=== PATIENT | female | born 1990 | race Caucasian/White ===

== ENCOUNTER 2023-07-11 10:18 | Inpatient (IN) ==
--- NOTE | 2023-07-11 11:11 | DR.DIZZY ---
HPI Time seen Time Seen by Provider: 07/11/23 11:11 PCP Primary Care Physician: Donna Polk Complaint Chief Complaint Doctor Comments: 32-year-old female presents for evaluation. Patient has persistent nausea vomiting over the past 3 weeks, is worsening. She is feeling lightheaded and dizzy. Patient with possible syncopal episode prior to arrival, was laying down with her , she started shaking all over. She could hear him calling her but she could not move. Having some discomfort across the upper abdomen. No history of peptic ulcer disease in the past. Nothing has set off vomiting that she knows about. Has had decreased p.o. intake, not moving her bowels much. She is urinating but the urine is dark. Patient has a history of hepatitis C in the past. No abdominal surgeries. Did have BTL with coils placed. Chief Complaint:: Pt c/o vomitting, dizziness, "I think a seizure right before we got here", pt states she was convulsing, really numb, "I know I have a UTI and I'm super dehydrated". Pt vomitting multiple times this AM. Pt states she has been vomitting x3 weeks, feeling of going to pass out has been going on for about a week. Pt c/o hot and cold chills. Pt is not being treated for UTI, "I know how they look and how they feel". Pt states "I feel like my body is shutting down". Generalized abdominal pain, denies diarrhea or constipation Self Treatment fo Chief Complaint: prilosec daily but has not taken any meds this AM except 1/2 subutex COVID-19 Coronavirus risk:travel/contact w/high risk person: No Has patient experienced Coronavirus symptoms: No Source History Provided: Patient Mode of Arrival Mode of Arrival: Wheelchair Timing Onset of Chief Complaint: 06/20/23 Context Stroke Symptoms: None PMH PMH Past Medical History: Yes Past Medical History: Anxiety, Depression, GERD and Liver Disease Past Medical History Comment: kate Hep C Past Surgical History: Yes Surgical History: PAINTER ASSISTANT Surgery Family History History of Family Medical Conditions: No Social History Does patient currently use any type of tobacco product: Yes Have you used tobacco products in the last 12 months: Yes Type of Tobacco Use: Vape Does any household member use tobacco: Yes Alcohol Use: Occasionally Do you use any recreational Drugs:: Yes (METH , AND DILAUDID) Lives With: Spouse Lives Where: Home Travel Risk Coronavirus risk:travel/contact w/high risk person: No Has patient experienced Coronavirus symptoms: No Infectious screening Have you traveled outside the country in the last 6 months?: No Isolation: Standard ROS Review of Systems Constitutional: Weakness Eyes: No Symptoms Reported ENTM: No Symptoms Reported Respiratoy: No Symptoms Reported Cardiovascular: No Symptoms Reported Gastrointestinal/Abdominal: See HPI Genitourinary: No Symptoms Reported Neurological: Weakness and Dizziness Musculoskeletal: No Symptoms Reported Integumentary: No Symptoms Reported Hematologic/Lymphatic: No Symptoms Reported All Other Systems: Reviewed and Negative PE Vital Signs Vitals: Vital Signs Temperature 97.9 F Pulse Rate 104 Pulse Rate 107 Pulse Rate 104 Pulse Rate 111 Pulse Rate 113 Pulse Rate 112 Pulse Rate 107 Pulse Rate 102 Pulse Rate 103 Pulse Rate 104 Pulse Rate 97 Pulse Rate 100 Pulse Rate 101 Pulse Rate 106 Pulse Rate 129 Respiratory Rate 28 Respiratory Rate 28 Respiratory Rate 16 Respiratory Rate 14 Respiratory Rate 24 Respiratory Rate 24 Respiratory Rate 15 Respiratory Rate 15 Respiratory Rate 22 Respiratory Rate 19 Respiratory Rate 11 Respiratory Rate 20 Respiratory Rate 11 Respiratory Rate 11 Respiratory Rate 16 Blood Pressure 148/91 Blood Pressure 119/79 Blood Pressure 136/76 Blood Pressure 142/82 Blood Pressure 119/89 O2 Sat by Pulse Oximetry 100 O2 Sat by Pulse Oximetry 96 O2 Sat by Pulse Oximetry 99 O2 Sat by Pulse Oximetry 98 O2 Sat by Pulse Oximetry 96 O2 Sat by Pulse Oximetry 99 O2 Sat by Pulse Oximetry 98 O2 Sat by Pulse Oximetry 97 O2 Sat by Pulse Oximetry 98 O2 Sat by Pulse Oximetry 100 O2 Sat by Pulse Oximetry 95 O2 Sat by Pulse Oximetry 96 O2 Sat by Pulse Oximetry 94 O2 Sat by Pulse Oximetry 96 O2 Sat by Pulse Oximetry 96 General General Appearance: Alert and In No Apparent Distress Eyes Eye exam: PERRL and EOMI ENT ENT Exam: Normal Oropharynx, Mucous Membranes Moist and TM's Normal Bilaterally Neck Neck Exam: Normal Inspection Respiratory Respiratory Exam: Normal Lung Sounds Bilat; negative Accessory Muscle Use or Respiratory Distress Cardiovascular Cardiovascular Exam: Normal Rhythm, Tachycardia and Normal Heart Sounds Abdominal Exam Abdominal Exam: Normal Bowel Sounds and Soft; negative Tenderness, Guarding or Rebound Extremeties Extremities Exam: Normal Inspection and Full ROM Neurologic Neurological Exam: Alert, Oriented X3 and CN II-XII Intact; negative Motor Sensory Deficit Skin Skin Exam: Warm and Dry COURSE Treatment Treatment: 29-year-old female with persistent vomiting of the past 3 weeks. W/u initiated. Patient given IV fluids, IV Zofran/Protonix. 1418 -labs show normal white count, slightly low platelets at 93,000. Chemistries remarkable for hyponatremia 129 and marked hypokalemia at 2.3. Has mild liver inflammation with AST 119, ALT 101. Urinalysis has too numerous to count red blood cells/white blood cells per high-power field. CT of the abdomen pelvis was performed, no obvious acute abnormalities. Renal function normal, kidney is normal on CT scan. Patient given additional IV fluids. Was also given potassium chloride, 10 mg, IV rider. Given 1 g IV Rocephin at this time for her UTI. 1420 -discussed with Dr. Richey, accepts the admission for patient's acute hypokalemia/hyponatremia and UTI. Will continue IV fluids, IV Rocephin, IV Zofran/Protonix. ROR Labs Reviewed Laboratory Results Reviewed?: Yes 07/11/23 11:30 07/11/23 11:30 Laboratory: WBC 9.0 X10^3/uL (3.6-10.0) 07/11/23 11:30 RBC 3.90 X10^6/uL (3.5-5.4) 07/11/23 11:30 Hgb 13.2 g/dL (12.0-16.0) 07/11/23 11:30 Hct 37.3 % (36.0-47.0) 07/11/23 11:30 MCV 95.5 fL (80.0-100.0) 07/11/23 11:30 MCH 33.8 pg (27.0-34.0) 07/11/23 11:30 MCHC 35.4 g/dL (33.0-35.0) H 07/11/23 11:30 RDW 14.4 % (11.6-16.5) 07/11/23 11:30 Plt Count 93 X10^3/uL (150.0-450.0) L 07/11/23 11:30 MPV 9.2 fL (7.4-11.0) 07/11/23 11:30 Neut % (Auto) 80.8 % (42.0-75.0) H 07/11/23 11:30 Lymph % (Auto) 11.0 % (21.0-51.0) L 07/11/23 11:30 [place] % (Auto) 7.8 % (0.0-13.0) 07/11/23 11:30 Eos % (Auto) 0.2 % (0.9-2.9) L 07/11/23 11:30 Baso % (Auto) 0.2 % (0.2-1.0) 07/11/23 11:30 Neut # (Auto) 7.2 x10^3/uL (2.2-4.8) H 07/11/23 11:30 Lymph # (Auto) 1.0 X10^3/uL (1.3-2.9) L 07/11/23 11:30 [place] # (Auto) 0.7 x10^3/uL (0.3-0.8) 07/11/23 11:30 Eos # (Auto) 0.0 x10^3/uL (0.0-0.2) 07/11/23 11:30 Baso # (Auto) 0.0 X10^3/uL (0.0-0.1) 07/11/23 11:30 Absolute Nucleated RBC 0.0 /100WBC 07/11/23 11:30 Sodium 129 mmol/L (136-145) L 07/11/23 11:30 Corrected Sodium TNP 07/11/23 11:30 Potassium 2.3 mmol/L (3.5-5.1) L* 07/11/23 11:30 Chloride 82 mmol/L (98-107) L 07/11/23 11:30 Carbon Dioxide > 45.0 mmol/L (21-32) H* 07/11/23 11:30 BUN 9 mg/dL (7-18) 07/11/23 11:30 Creatinine 0.97 mg/dL (0.55-1.02) 07/11/23 11:30 Est GFR (MDRD) Af Amer > 60 (>60) 07/11/23 11:30 Est GFR (MDRD) Non-Af > 60 (>60) 07/11/23 11:30 Glucose 97 mg/dL (65-99) 07/11/23 11:30 Calcium 8.2 mg/dL (8.5-10.1) L 07/11/23 11:30 Corrected Calcium 8.8 mg/dL (8.5-10.1) 07/11/23 11:30 Magnesium 1.1 mg/dL (2.0-2.9) L 07/11/23 13:27 Total Bilirubin 1.80 mg/dL (0.2-1.0) H 07/11/23 11:30 AST 119 Units/L (15-37) H 07/11/23 11:30 ALT 101 Units/L (12-78) H 07/11/23 11:30 Alkaline Phosphatase 93 Units/L (46-116) 07/11/23 11:30 Creatine Kinase 50 Units/L (26-192) 07/11/23 11:30 Total Protein 7.8 g/dL (6.4-8.2) 07/11/23 11:30 Albumin 3.2 g/dL (3.4-5.0) L 07/11/23 11:30 Globulin 4.6 g/dL (2.5-4.5) H 07/11/23 11:30 Albumin/Globulin Ratio 0.7 Ratio (1.1-2.1) L 07/11/23 11:30 Lipase 30 Units/L (16-77) 07/11/23 11:30 HCG, Qual Negative <10 mIU/mL 07/11/23 11:30 Specimen Type Clean catch urine 07/11/23 13:30 Urine Color [place] (YELLOW) 07/11/23 13:30 Urine Appearance Cloudy (CLEAR) 07/11/23 13:30 Urine pH 6.0 (5.0 - 8.0) 07/11/23 13:30 Ur Specific [place] 1.015 (1.000-1.030) 07/11/23 13:30 Urine Protein 2+ (NEGATIVE) 07/11/23 13:30 Urine Glucose (UA) Negative (NEGATIVE) 07/11/23 13:30 Urine Ketones Negative (NEGATIVE) 07/11/23 13: Urine Blood 4+ (NEGATIVE) 07/11/23 13:30 Urine Nitrite Negative (NEGATIVE) 07/11/23 13:30 Urine Bilirubin 1+ (NEGATIVE) 07/11/23 13: Urine Urobilinogen 3+ (NORMAL) 07/11/23 13:30 Ur Leukocyte Esterase 3+ (NEGATIVE) 07/11/23 13:30 Urine RBC Tntc /HPF (0-3) A 07/11/23 13:30 Urine WBC Tntc /HPF (0-5) A 07/11/23 13:30 Ur Squamous Epith Cells Few /HPF (NEGATIVE) 07/11/23 13:30 Amorphous Sediment 2+ /HPF (NEGATIVE) 07/11/23 13:30 Urine Bacteria 3+ /HPF (NEGATIVE) 07/11/23 13:30 Ur Culture Indicated? Yes/culture set up 07/11/23 13:30 XRAY XRAY Interpreted by: Both X-ray Results: EXAM: ABDCMEN/PELVIS WITH CON HISTORY: VOMITING, UPPER ABD PAIN; TUBAL, HTN COMPARISON: None available. TECHNIQUE: Multiple axial images of the abdomen and pelvis were obtained with IV contrast. Oral contrast was not administered. Dose reduction techniques including Automated Exposure Control (AEC) and adjustment of mA and kV were utilized. FINDINGS: Lung bases are unremarkable. No free air. Bones show no lytic or destructive process. The spleen, adrenal glands, pancreas unremarkable. Kidneys appear normal. No hydronephrosis. No ureteral calculi evident. Fatty liver. Gallbladder unremarkable. Abdominal aorta not aneurysmal, no adenopathy. Nonobstructive bowel. No bowel inflammatory features. Normal appendix. Rogelio dder wall thickening consider despite decompression ascending and transverse colon. No pelvic free fluid. Bladder unremarkable. Tubal ligation clips in the right lower pelvis. No adnexal mass appreciated. IMPRESSION: 1. Fatty liver. 2. Nonobstructive bowel, no bowel inflammatory features, decompressed ascending and transverse colon presumably exaggerate wall appearance but mild colitis difficult to exclude by imaging. Normal appendix. 3. Additional as above THIS IS AN ELECTRONICALLY VERIFIED FINAL REPORT 07/11/2023 2:04 PM - Electronically signed by Darrell Avila MD Opioid Opioid Risk Tool Age ([place] box if 16-45): Yes History of Preadolescent Sexual Abuse: No Total: 1 Total Score Risk Category: Low Risk Copyright: Zachery PADGETT predicting aberrant behaviors Discharge Plan Diagnosis Discharge Problem: Acute UTI, Acute hypokalemia, Acute hyponatremia Discharge Plan Patient Disposition: ADMITTED INPATIENT Condition: Stable Orders to Discharge Patient Discharge Orders: Transfer (Routine); Ordered 07/11/23 Ordered By: Jay Quinones
[2023-07-11 11:38] LABS: BASOPHILS % (AUTO) 0.2 % (0.2-1.0); EOSINOPHILS % (AUTO) 0.2 % (0.9-2.9); HEMATOCRIT 37.3 % (36.0-47.0); HEMOGLOBIN 13.2 g/dL (12.0-16.0); MEAN CORPUSCULAR HEMOGLOBIN 33.8 pg (27.0-34.0); MEAN CORPUSCULAR HGB CONC 35.4 g/dL (33.0-35.0); MEAN CORPUSCULAR VOLUME 95.5 fL (80.0-100.0); MEAN PLATELET VOLUME 9.2 fL (7.4-11.0); MONOCYTES # (AUTO) 0.7 x10^3/uL (0.3-0.8); MONOCYTES % (AUTO) 7.8 % (0.0-13.0); NEUTROPHILS # (AUTO) 7.2 x10^3/uL (2.2-4.8); NEUTROPHILS % (AUTO) 80.8 % (42.0-75.0); PLATELET COUNT 93 X10^3/uL (150.0-450.0); RED CELL DISTRIBUTION WIDTH 14.4 % (11.6-16.5)
[2023-07-11] MEDS: NS 1,000 ML IV 1,000 ML IV ONE ×2 (11:39→12:39)
[2023-07-11] MEDS: PROTONIX INJ 40 MG VIAL IVP ONE (11:40)
[2023-07-11] MEDS: ZOFRAN INJ 4 MG VIAL IVP ONE (11:40)
[2023-07-11 11:47] LABS: SERUM PREGNANCY TEST, QUAL NEGATIVE <10 mIU/mL
[2023-07-11 11:49] LABS: ALANINE AMINOTRANSFERASE 101 Units/L (12-78); ALBUMIN 3.2 g/dL (3.4-5.0); ALKALINE PHOSPHATASE 93 Units/L (46-116); ASPARTATE AMINO TRANSFERASE 119 Units/L (15-37); BLOOD UREA NITROGEN 9 mg/dL (7-18); CALCIUM 8.2 mg/dL (8.5-10.1); CHLORIDE 82 mmol/L (98-107); COR CA(FOR HYPOALB) 8.8 mg/dL (8.5-10.1); CREATINE KINASE 50 Units/L (26-192); CREATININE 0.97 mg/dL (0.55-1.02); GLUCOSE 97 mg/dL (65-99); LIPASE 30 Units/L (16-77); SODIUM 129 mmol/L (136-145); TOTAL PROTEIN 7.8 g/dL (6.4-8.2); eGFR NON BLACK RACES > 60 (>60)
[2023-07-11 11:51] LABS: CARBON DIOXIDE > 45.0 mmol/L (21-32); POTASSIUM 2.3 mmol/L (3.5-5.1)
[2023-07-11] MEDS: ATIVAN INJ 2 MG VIAL IVP ONE (12:32)
[2023-07-11] MEDS: VALIUM INJ IVP ONE (12:33)
[2023-07-11] MEDS: K-RIDER 10 MEQ/100 ML WATER 10 MEQ/100 ML BAG IV ONE (12:39)
[2023-07-11 13:42] LABS: BILIRUBIN,URINE 1+ (NEGATIVE); BLOOD/HEMOGLOBIN,URINE 4+ (NEGATIVE); GLUCOSE, URINE NEGATIVE (NEGATIVE); KETONES,URINE NEGATIVE (NEGATIVE); LEUKOCYTE ESTERASE ,URINE 3+ (NEGATIVE); NITRITES,URINE NEGATIVE (NEGATIVE); PROTEIN,URINE 2+ (NEGATIVE); UROBILINOGEN,URINE 3+ (NORMAL)
[2023-07-11 13:49] LABS: APPEARANCE,URINE CLOUDY (CLEAR); COLOR,URINE ORANGE (YELLOW)
[2023-07-11 13:50] LABS: BACTERIA,URINE 3+ /HPF (NEGATIVE); RBC,URINE TNTC /HPF (0-3); SQUAMOUS EPITHELIAL CELL,UR FEW /HPF (NEGATIVE)
--- NOTE | 2023-07-11 14:07 | CT ---
EXAM:ABDCMEN/PELVIS WITH CONHISTORY:VOMITING, UPPER ABD PAIN; TUBAL, HTNCOMPARISON:None available.TECHNIQUE:Multiple axial images of the abdomen and pelvis were obtained with IV contrast. Oral contrast was not administered. Dose reduction techniques including Automated Exposure Control (AEC) and adjustment of mA and kV were utilized.FINDINGS:Lung bases are unremarkable. No free air.Bones show no lytic or destructive process.The spleen, adrenal glands, pancreas unremarkable. Kidneys appear normal. No hydronephrosis. No ureteral calculi evident.Fatty liver. Gallbladder unremarkable.Abdominal aorta not aneurysmal, no adenopathy.Nonobstructive bowel. No bowel inflammatory features. Normal appendix. Bladder wall thickening consider despite decompression ascending and transverse colon.No pelvic free fluid. Bladder unremarkable. Tubal ligation clips in the right lower pelvis. No adnexal mass appreciated.IMPRESSION:1. Fatty liver.2. Nonobstructive bowel, no bowel inflammatory features, decompressed ascending and transverse colon presumably exaggerate wall appearance but mild colitis difficult to exclude by imaging. Normal appendix.3. Additional as aboveTHIS IS AN ELECTRONICALLY VERIFIED FINAL REPORT07/11/2023 2:04 PM - Electronically signed by Darrell Avila MD
[2023-07-11] MEDS: ROCEPHIN VIAL 1 GRAM IVP ONE (14:12)
[2023-07-11] MEDS: NS 1,000 ML IV 1,000 ML IV SCH (14:12)
[2023-07-11] MEDS ORDERED: COLACE CAP 100 MG PO PRN (15:36)
[2023-07-11] MEDS: NS + KCL 40 MEQ/L 1,000 ML with MAGNESIUM SULFATE 50% INJ VIAL 2 G IV SCH (15:46)
[2023-07-11 16:41] VITALS: BMI 30.6
[2023-07-11] MEDS: ATIVAN INJ 2 MG VIAL IVP PRN (20:11)
[2023-07-11] MEDS: NS + KCL 40 MEQ/L 1,000 ML with MAGNESIUM SULFATE 50% INJ VIAL 1 G IV SCH (21:49)
[2023-07-12 05:15] LABS: BASOPHILS % (AUTO) 0.5 % (0.2-1.0); EOSINOPHILS % (AUTO) 0.5 % (0.9-2.9); HEMATOCRIT 30.4 % (36.0-47.0); LYMPHOCYTES # (AUTO) 0.9 X10^3/uL (1.3-2.9); LYMPHOCYTES % (AUTO) 19.2 % (21.0-51.0); MEAN CORPUSCULAR HEMOGLOBIN 33.9 pg (27.0-34.0); MEAN CORPUSCULAR HGB CONC 34.9 g/dL (33.0-35.0); MEAN CORPUSCULAR VOLUME 97.1 fL (80.0-100.0); MEAN PLATELET VOLUME 9.5 fL (7.4-11.0); MONOCYTES # (AUTO) 0.4 x10^3/uL (0.3-0.8); MONOCYTES % (AUTO) 9.1 % (0.0-13.0); NEUTROPHILS # (AUTO) 3.5 x10^3/uL (2.2-4.8); NEUTROPHILS % (AUTO) 70.7 % (42.0-75.0); PLATELET COUNT 66 X10^3/uL (150.0-450.0); RED BLOOD COUNT 3.13 X10^6/uL (3.5-5.4); RED CELL DISTRIBUTION WIDTH 14.2 % (11.6-16.5); WHITE BLOOD COUNT 4.9 X10^3/uL (3.6-10.0)
[2023-07-12 05:18] LABS: HEMOGLOBIN 10.6 g/dL (12.0-16.0)
[2023-07-12 05:19] LABS: ALANINE AMINOTRANSFERASE 63 Units/L (12-78); ALBUMIN 2.4 g/dL (3.4-5.0); ALKALINE PHOSPHATASE 62 Units/L (46-116); ASPARTATE AMINO TRANSFERASE 62 Units/L (15-37); BLOOD UREA NITROGEN 7 mg/dL (7-18); CARBON DIOXIDE 39.6 mmol/L (21-32); CHLORIDE 95 mmol/L (98-107); COR CA(FOR HYPOALB) 8.3 mg/dL (8.5-10.1); CREATININE 0.64 mg/dL (0.55-1.02); GLUCOSE 78 mg/dL (65-99); MAGNESIUM 2.2 mg/dL (2.0-2.9); SODIUM 137 mmol/L (136-145); TOTAL PROTEIN 5.8 g/dL (6.4-8.2); eGFR NON BLACK RACES > 60 (>60)
[2023-07-12 05:29] LABS: POTASSIUM 2.5 mmol/L (3.5-5.1)
[2023-07-12] MEDS: OMNIPAQUE 350 mg/mL 100 mL BTL 100 ML ONE (08:02)
[2023-07-12] MEDS: K-RIDER 10 MEQ/100 ML WATER 10 MEQ/100 ML BAG IV SCH (08:05)
[2023-07-12] MEDS: NS 1,000 ML IV 1,000 ML IV SCH (08:05)
[2023-07-12] MEDS: CONSULT PHARMACY - POTASSIUM & MAGNESIUM XX SCH (08:05)
[2023-07-12] MEDS: PROTONIX INJ 40 MG VIAL IVP SCH (08:42)
--- NOTE | 2023-07-12 09:43 | DR.H&P ---
H&P History & Physical for Day of: H&P Date: 07/12/23 Chief Complaint Chief Complaint: Weakness Dysuria Muscle spasms Allergies Allergies Allergy/AdvReac Type Severity Reaction Status Date / Time tramadol Allergy hives Verified 07/11/23 10:50 History of Present Illness History of Present Illness: Patient is a 32-year-old female presenting with generalized weakness, dysuria, and muscle spasms. She reports that symptoms have been going on for the past few days. Reports symptoms have been getting worse. Labs/imaging: WBC 4.9, hemoglobin 10.6, platelets 66, sodium [id number], potassium 2.3>2.5, creatinine 0.64, glucose 78, AST 1 1962, ALT 10 163, ALP 62, lactic acid 3.0, UA consistent with infection, urine/blood culture pending, CT abdomen and pelvis revealed fatty liver. Patient was admitted for acute cystitis, hyponatremia, and hypokalemia. She was started on IV fluids normal saline at 150 mL/h, electrolytes are going to be repleted via protocol. Will continue IV antibiotics Rocephin. Will advance her diet to regular and order Zanaflex as needed to help with muscle spasms. Otherwise continue with current treatment plan, continue to closely monitor and follow-up labs in the morning. Past Medical History Past Medical History: Anxiety, Depression, GERD and Liver Disease Past Surgical History Surgical History: SITE RELIABILITY ENGINEER Surgery Family History Family Medical History: Hypertension Social History Does patient currently use any type of tobacco product: Yes (nicotine vape) Have you used tobacco products in the last 12 months: Yes Type of Tobacco Use: Vape Does any household member use tobacco: Yes Alcohol Use: Rarely Drug Use: None Medications Home Medications: Home Medications Medication Instructions Recorded Confirmed Type buprenorphine 8 mg-naloxone 2 mg 0.5 tab sublingual BID 07/11/23 07/11/23 History sublingual tablet omeprazole 20 mg capsule,delayed 20 mg PO QDAY 07/11/23 07/11/23 History release Labs 07/12/23 04:35 07/12/23 04:35 Labs: Laboratory WBC 4.9 X10^3/uL (3.6-10.0) 07/12/23 04:35 RBC 3.13 X10^6/uL (3.5-5.4) L 07/12/23 04:35 Hgb 10.6 g/dL (12.0-16.0) L D 07/12/23 04:35 Hct 30.4 % (36.0-47.0) L 07/12/23 04:35 MCV 97.1 fL (80.0-100.0) 07/12/23 04:35 MCH 33.9 pg (27.0-34.0) 07/12/23 04:35 MCHC 34.9 g/dL (33.0-35.0) 07/12/23 04:35 RDW 14.2 % (11.6-16.5) 07/12/23 04:35 Plt Count 66 X10^3/uL (150.0-450.0) L 07/12/23 04:35 MPV 9.5 fL (7.4-11.0) 07/12/23 04:35 Neut % (Auto) 70.7 % (42.0-75.0) 07/12/23 04:35 Lymph % (Auto) 19.2 % (21.0-51.0) L 07/12/23 04:35 [place] % (Auto) 9.1 % (0.0-13.0) 07/12/23 04:35 Eos % (Auto) 0.5 % (0.9-2.9) L 07/12/23 04:35 Baso % (Auto) 0.5 % (0.2-1.0) 07/12/23 04:35 Neut # (Auto) 3.5 x10^3/uL (2.2-4.8) 07/12/23 04:35 Lymph # (Auto) 0.9 X10^3/uL (1.3-2.9) L 07/12/23 04:35 [place] # (Auto) 0.4 x10^3/uL (0.3-0.8) 07/12/23 04:35 Eos # (Auto) 0.0 x10^3/uL (0.0-0.2) 07/12/23 04:35 Baso # (Auto) 0.0 X10^3/uL (0.0-0.1) 07/12/23 04:35 Absolute Nucleated RBC 0.2 /100WBC 07/12/23 04:35 Sodium 137 mmol/L (136-145) 07/12/23 04:35 Corrected Sodium TNP 07/12/23 04:35 Potassium 2.5 mmol/L (3.5-5.1) L* 07/12/23 04:35 Chloride 95 mmol/L (98-107) L 07/12/23 04:35 Carbon Dioxide 39.6 mmol/L (21-32) H 07/12/23 04:35 BUN 7 mg/dL (7-18) 07/12/23 04:35 Creatinine 0.64 mg/dL (0.55-1.02) 07/12/23 04:35 Est GFR (MDRD) Af Amer > 60 (>60) 07/12/23 04:35 Est GFR (MDRD) Non-Af > 60 (>60) 07/12/23 04:35 Glucose 78 mg/dL (65-99) 07/12/23 04:35 Lactic Acid 3.0 mmol/L (0.4-2.0) H 07/11/23 19:00 Calcium 7.0 mg/dL (8.5-10.1) L 07/12/23 04:35 Corrected Calcium 8.3 mg/dL (8.5-10.1) L 07/12/23 04:35 Magnesium 2.2 mg/dL (2.0-2.9) 07/12/23 04:35 Total Bilirubin 0.80 mg/dL (0.2-1.0) 07/12/23 04:35 AST 62 Units/L (15-37) H 07/12/23 04:35 ALT 63 Units/L (12-78) 07/12/23 04:35 Alkaline Phosphatase 62 Units/L (46-116) 07/12/23 04:35 Creatine Kinase 50 Units/L (26-192) 07/11/23 11:30 Total Protein 5.8 g/dL (6.4-8.2) L 07/12/23 04:35 Albumin 2.4 g/dL (3.4-5.0) L 07/12/23 04:35 Globulin 3.4 g/dL (2.5-4.5) 07/12/23 04:35 Albumin/Globulin Ratio 0.7 Ratio (1.1-2.1) L 07/12/23 04:35 Lipase 30 Units/L (16-77) 07/11/23 11:30 HCG, Qual Negative <10 mIU/mL 07/11/23 11:30 Specimen Type Clean catch urine 07/11/23 13:30 Urine Color [place] (YELLOW) 07/11/23 13:30 Urine Appearance Cloudy (CLEAR) 07/11/23 13:30 Urine pH 6.0 (5.0 - 8.0) 07/11/23 13:30 Ur Specific [place] 1.015 (1.000-1.030) 07/11/23 13:30 Urine Protein 2+ (NEGATIVE) 07/11/23 13:30 Urine Glucose (UA) Negative (NEGATIVE) 07/11/23 13:30 Urine Ketones Negative (NEGATIVE) 07/11/23 13:30 Urine Blood 4+ (NEGATIVE) 07/11/23 13:30 Urine Nitrite Negative (NEGATIVE) 07/11/23 13:30 Urine Bilirubin 1+ (NEGATIVE) 07/11/23 13:30 Urine Urobilinogen 3+ (NORMAL) 07/11/23 13:30 Ur Leukocyte Esterase 3+ (NEGATIVE) 07/11/23 13:30 Urine RBC Tntc /HPF (0-3) A 07/11/23 13:30 Urine WBC Tntc /HPF (0-5) A 07/11/23 13:30 Ur Squamous Epith Cells Few /HPF (NEGATIVE) 07/11/23 13:30 Amorphous Sediment 2+ /HPF (NEGATIVE) 07/11/23 13:30 Urine Bacteria 3+ /HPF (NEGATIVE) 07/11/23 13:30 Ur Culture Indicated? Yes/culture set up 07/11/23 13:30 Review of Systems Constitutional: Weakness Eyes: No Symptoms Reported ENT: No Symptoms Reported Respiratory: No Symptoms Reported Cardiovascular: No Symptoms Reported Gastrointestinal: No Symptoms Reported Genitourinary: Dysuria Musculoskeletal: Other (muscle spasms) Skin: No Symptoms Reported Neurological: No Symptoms Reported Physical Exam Vital Signs: Vital Signs Temperature 97.6 F Temperature 97.6 F Pulse Rate [Right Radial] 103 Pulse Rate [Right Radial] 103 Respiratory Rate 18 Respiratory Rate 20 Blood Pressure [Right Arm] 122/85 Blood Pressure [Right Arm] 124/78 O2 Sat by Pulse Oximetry 94 O2 Sat by Pulse Oximetry 98 Oriented: Normal Eyes: Normal Ear: Normal Nose: Normal Throat: Normal Respiratory: Clear Throughout Cardiovascular: Normal : Normal Auscultation: Bowel Sounds: Normal Palpation: Normal Tenderness: Normal Skin: Normal Musculoskeletal: Normal Psychiatric: Normal Mood Description: Calm and Appropriate Affect: Normal Speech Pattern: Clear and Appropriate Assessment/Plan (1) Acute UTI: Status: Acute Plan: IV rocephin Urine culture pending (2) Acute hypokalemia: Status: Acute (3) Acute hyponatremia: Status: Acute Review H&P Reviewed: Yes Patient was examined?: Yes
[2023-07-12] MEDS: ROCEPHIN VIAL 1 GRAM 1 G in NS 100 ML IV 100 ML IV SCH (10:17)
[2023-07-12] MEDS: ZANAFLEX PO SCH (10:17)
[2023-07-12] MEDS: MILK OF MAGNESIA PO PRN (14:13)
[2023-07-12] MEDS: TYLENOL 325 MG TAB PO PRN (17:57)
[2023-07-12] MEDS ORDERED: MAGNESIUM SULFATE 50% INJ VIAL ONE (20:05)
[2023-07-12] MEDS: ZANAFLEX PO PRN (22:07)
[2023-07-13 05:16] LABS: BASOPHILS % (AUTO) 0.6 % (0.2-1.0); EOSINOPHILS # (AUTO) 0.1 x10^3/uL (0.0-0.2); EOSINOPHILS % (AUTO) 1.7 % (0.9-2.9); HEMATOCRIT 27.7 % (36.0-47.0); HEMOGLOBIN 9.4 g/dL (12.0-16.0); LYMPHOCYTES # (AUTO) 1.4 X10^3/uL (1.3-2.9); LYMPHOCYTES % (AUTO) 37.8 % (21.0-51.0); MEAN CORPUSCULAR HEMOGLOBIN 33.7 pg (27.0-34.0); MEAN CORPUSCULAR VOLUME 98.9 fL (80.0-100.0); MEAN PLATELET VOLUME 9.2 fL (7.4-11.0); MONOCYTES # (AUTO) 0.2 x10^3/uL (0.3-0.8); MONOCYTES % (AUTO) 6.2 % (0.0-13.0); NEUTROPHILS % (AUTO) 53.7 % (42.0-75.0); PLATELET COUNT 62 X10^3/uL (150.0-450.0); RED CELL DISTRIBUTION WIDTH 14.3 % (11.6-16.5); WHITE BLOOD COUNT 3.7 X10^3/uL (3.6-10.0)
[2023-07-13 05:36] LABS: ALANINE AMINOTRANSFERASE 49 Units/L (12-78); ALBUMIN 2.1 g/dL (3.4-5.0); ALKALINE PHOSPHATASE 52 Units/L (46-116); ASPARTATE AMINO TRANSFERASE 33 Units/L (15-37); BLOOD UREA NITROGEN 3 mg/dL (7-18); CALCIUM 6.9 mg/dL (8.5-10.1); CARBON DIOXIDE 35.9 mmol/L (21-32); CHLORIDE 103 mmol/L (98-107); COR CA(FOR HYPOALB) 8.4 mg/dL (8.5-10.1); CREATININE 0.63 mg/dL (0.55-1.02); GLUCOSE 90 mg/dL (65-99); MAGNESIUM 2.2 mg/dL (2.0-2.9); POTASSIUM 3.6 mmol/L (3.5-5.1); SODIUM 139 mmol/L (136-145); TOTAL PROTEIN 5.5 g/dL (6.4-8.2); eGFR NON BLACK RACES > 60 (>60)
[2023-07-13] MEDS ORDERED: CONSULT PHARMACY - POTASSIUM & MAGNESIUM XX SCH (06:00)
[2023-07-13] MEDS ORDERED: K-DUR TAB 20 MEQ PO SCH (09:00)
[2023-07-13] MEDS: NS + KCL 20 MEQ/L 1,000 ML with MAGNESIUM SULFATE 50% INJ VIAL 1 G IV SCH ×2 (09:08→12:08)
[2023-07-13 12:10] LABS: RETICULOCYTE % 0.7 % (0.8-2.2)
[2023-07-14 06:11] LABS: BASOPHILS % (AUTO) 0.2 % (0.2-1.0); EOSINOPHILS % (AUTO) 0.6 % (0.9-2.9); HEMATOCRIT 30.4 % (36.0-47.0); HEMOGLOBIN 10.7 g/dL (12.0-16.0); LYMPHOCYTES # (AUTO) 1.4 X10^3/uL (1.3-2.9); LYMPHOCYTES % (AUTO) 19.5 % (21.0-51.0); MEAN CORPUSCULAR HEMOGLOBIN 34.4 pg (27.0-34.0); MEAN CORPUSCULAR HGB CONC 35.2 g/dL (33.0-35.0); MEAN CORPUSCULAR VOLUME 97.7 fL (80.0-100.0); MEAN PLATELET VOLUME 8.4 fL (7.4-11.0); MONOCYTES # (AUTO) 0.3 x10^3/uL (0.3-0.8); MONOCYTES % (AUTO) 4.1 % (0.0-13.0); NEUTROPHILS # (AUTO) 5.4 x10^3/uL (2.2-4.8); NEUTROPHILS % (AUTO) 75.6 % (42.0-75.0); PLATELET COUNT 69 X10^3/uL (150.0-450.0); RED BLOOD COUNT 3.11 X10^6/uL (3.5-5.4); WHITE BLOOD COUNT 7.1 X10^3/uL (3.6-10.0)
[2023-07-14 06:16] LABS: ALANINE AMINOTRANSFERASE 40 Units/L (12-78); ALBUMIN 2.4 g/dL (3.4-5.0); ALKALINE PHOSPHATASE 59 Units/L (46-116); ASPARTATE AMINO TRANSFERASE 27 Units/L (15-37); BLOOD UREA NITROGEN 2 mg/dL (7-18); CALCIUM 7.3 mg/dL (8.5-10.1); CARBON DIOXIDE 32.3 mmol/L (21-32); CHLORIDE 100 mmol/L (98-107); COR CA(FOR HYPOALB) 8.6 mg/dL (8.5-10.1); CREATININE 0.52 mg/dL (0.55-1.02); GLUCOSE 81 mg/dL (65-99); MAGNESIUM 1.5 mg/dL (2.0-2.9); POTASSIUM 3.6 mmol/L (3.5-5.1); SODIUM 135 mmol/L (136-145); eGFR NON BLACK RACES > 60 (>60)
[2023-07-14] MEDS ORDERED: CONSULT PHARMACY - POTASSIUM & MAGNESIUM XX SCH (07:00)
[2023-07-14] MEDS: MAG-OX TAB PO SCH (09:42)
[2023-07-14] MEDS: SOLU-Medrol 40 MG VIAL IVP ONE (09:42)
[2023-07-14] MEDS: PROTONIX INJ 40 MG VIAL IVP ONE (09:42)
[2023-07-14] MEDS: CIPRO TAB 500 MG PO SCH (09:42)
[2023-07-14] MEDS: VITAMIN B-12 INJ IM ONE (09:43)
[2023-07-14] MEDS: FOLIC ACID TAB 1 MG PO SCH (09:43)
[2023-07-14] MEDS: K-DUR TAB 20 MEQ PO SCH (09:43)
[2023-07-14] MEDS: MAALOX or MYLANTA PO PRN (10:36)
--- NOTE | 2023-07-14 13:05 | CT ---
EXAM:LUMBAR SPINE W/O CONHISTORY:MUSCLE WEAKNESS ;COMPARISON:NoneTECHNIQUE:CT of the lumbar spine obtained without IV contrast. Coronal and sagittal images were reconstructed. Dose reduction techniques included Automated Exposure Control (AEC) and adjustment of mA and kV.FINDINGS:Normal lumbar spinal alignment. The disc spaces are well preserved with no significant degenerative changes in the visualized spine. No acute osseous abnormality.Partially visualized bilateral pleural effusions. Hepatic steatosis.IMPRESSION:No acute fracture in the lumbar spine.THIS IS AN ELECTRONICALLY VERIFIED FINAL REPORT07/14/2023 1:02 PM - Electronically signed by Chris Pavon MD
--- NOTE | 2023-07-14 13:06 | CT ---
EXAM:CERVICAL SPINE W/O CONHISTORY:MUSCLE WEAKNESS;COMPARISON:NoneTECHNIQUE:CT of the cervical spine obtained without IV contrast. Coronal and sagittal images were reconstructed. Dose reduction techniques included Automated Exposure Control (AEC) and adjustment of mA and kV.FINDINGS:Normal cervical spinal alignment. The disc spaces are well preserved with no significant degenerative changes in the visualized spine. No acute osseous abnormality.No acute soft tissue abnormality.IMPRESSION:No acute fracture in the cervical spine.THIS IS AN ELECTRONICALLY VERIFIED FINAL REPORT07/14/2023 1:02 PM - Electronically signed by Chris Pavon MD
[2023-07-14] MEDS: NS + KCL 20 MEQ/L 1,000 ML with MAGNESIUM SULFATE 50% INJ VIAL 2 G IV SCH (13:24)
[2023-07-14] MEDS: ZOFRAN INJ 4 MG VIAL IVP PRN (13:25)
[2023-07-14] MEDS: MOTRIN TAB 600 MG PO PRN (21:51)
[2023-07-15 04:50] VITALS: O2SAT 98
[2023-07-15 05:40] LABS: BASOPHILS % (AUTO) 0.1 % (0.2-1.0); EOSINOPHILS % (AUTO) 0.2 % (0.9-2.9); HEMATOCRIT 31.9 % (36.0-47.0); HEMOGLOBIN 11.1 g/dL (12.0-16.0); LYMPHOCYTES # (AUTO) 1.8 X10^3/uL (1.3-2.9); LYMPHOCYTES % (AUTO) 25.3 % (21.0-51.0); MEAN CORPUSCULAR HEMOGLOBIN 33.9 pg (27.0-34.0); MEAN CORPUSCULAR HGB CONC 34.9 g/dL (33.0-35.0); MEAN CORPUSCULAR VOLUME 97.1 fL (80.0-100.0); MONOCYTES # (AUTO) 0.6 x10^3/uL (0.3-0.8); MONOCYTES % (AUTO) 8.5 % (0.0-13.0); NEUTROPHILS # (AUTO) 4.7 x10^3/uL (2.2-4.8); NEUTROPHILS % (AUTO) 65.9 % (42.0-75.0); PLATELET COUNT 91 X10^3/uL (150.0-450.0); RED BLOOD COUNT 3.28 X10^6/uL (3.5-5.4); RED CELL DISTRIBUTION WIDTH 14.3 % (11.6-16.5); WHITE BLOOD COUNT 7.2 X10^3/uL (3.6-10.0)
[2023-07-15 05:53] LABS: ALANINE AMINOTRANSFERASE 41 Units/L (12-78); ALBUMIN 2.6 g/dL (3.4-5.0); ALKALINE PHOSPHATASE 65 Units/L (46-116); ASPARTATE AMINO TRANSFERASE 24 Units/L (15-37); BLOOD UREA NITROGEN 2 mg/dL (7-18); CALCIUM 7.7 mg/dL (8.5-10.1); CARBON DIOXIDE 30.1 mmol/L (21-32); CHLORIDE 100 mmol/L (98-107); COR CA(FOR HYPOALB) 8.8 mg/dL (8.5-10.1); CREATININE 0.64 mg/dL (0.55-1.02); GLUCOSE 92 mg/dL (65-99); MAGNESIUM 2.1 mg/dL (2.0-2.9); POTASSIUM 4.2 mmol/L (3.5-5.1); SODIUM 133 mmol/L (136-145); TOTAL PROTEIN 6.6 g/dL (6.4-8.2); eGFR NON BLACK RACES > 60 (>60)
[2023-07-15 09:22] VITALS: RESP 18
[2023-07-15] MEDS: SUBOXONE TAB SL SCH (09:45)
--- NOTE | 2023-07-15 10:20 | PCM.DCPLAN ---
DISCHARGE SUMMARY Admission Date Date of Admission: 07/11/23 Discharge Date Discharge Date: 07/15/23 Admission Diagnoses (1) Acute UTI: Status: Acute (2) Acute hypokalemia: Status: Acute (3) Acute hyponatremia: Status: Acute Discharge Diagnoses Discharge Diagnosis: 1. UTI secondary to E. coli 2. Acute hypokalemia resolved 3. Acute hyponatremia resolved next 4. Nausea 5. Bilateral feet pain/neuropathy Discharge Medications Discharge Medications: Home Medication List buprenorphine 8 mg-naloxone 2 mg sublingual tablet 0.5 tab sublingual BID 07/11/23 [History] omeprazole 20 mg capsule,delayed release 20 mg PO QDAY 07/11/23 [History] ciprofloxacin HCl 500 mg tablet (Cipro) 500 mg PO BID 10 days #20 tabs 07/14/23 [Rx] folic acid 1 mg tablet 1 mg PO DAILY 30 days #30 tabs 07/14/23 [Rx] magnesium oxide 400 mg (241.3 mg magnesium) tablet 400 mg PO QDAY 14 days #14 tabs 07/14/23 [Rx] ondansetron 8 mg disintegrating tablet 8 mg PO Q8H PRN Nausea And Vomiting #30 t abs 07/15/23 [Rx] Prescriptions: ciprofloxacin HCl [Cipro] JOY,MARIUSZ folic acid JOY,MARIUSZ magnesium oxide JOY,MARIUSZ ondansetron [facility] Course Vital Signs: Vital Signs Temperature 98 F Temperature 98.3 F Pulse Rate [Right Radial] 113 Pulse Rate [Right Radial] 106 Respiratory Rate 18 Respiratory Rate 20 Blood Pressure [Right Arm] 134/79 Blood Pressure [Right Arm] 132/83 O2 Sat by Pulse Oximetry 98 O2 Sat by Pulse Oximetry 98 Latest Lab Results: Laboratory Last Values WBC 7.2 X10^3/uL (3.6-10.0) 07/15/23 05:15 RBC 3.28 X10^6/uL (3.5-5.4) L 07/15/23 05:15 Hgb 11.1 g/dL (12.0-16.0) L 07/15/23 05:15 Hct 31.9 % (36.0-47.0) L 07/15/23 05:15 MCV 97.1 fL (80.0-100.0) 07/15/23 05:15 MCH 33.9 pg (27.0-34.0) 07/15/23 05:15 MCHC 34.9 g/dL (33.0-35.0) 07/15/23 05:15 RDW 14.3 % (11.6-16.5) 07/15/23 05:15 Plt Count 91 X10^3/uL (150.0-450.0) L 07/15/23 05:15 MPV 8.0 fL (7.4-11.0) 07/15/23 05:15 Neut % (Auto) 65.9 % (42.0-75.0) 07/15/23 05:15 Lymph % (Auto) 25.3 % (21.0-51.0) 07/15/23 05:15 [place] % (Auto) 8.5 % (0.0-13.0) 07/15/23 05:15 Eos % (Auto) 0.2 % (0.9-2.9) L 07/15/23 05:15 Baso % (Auto) 0.1 % (0.2-1.0) L 07/15/23 05:15 Neut # (Auto) 4.7 x10^3/uL (2.2-4.8) 07/15/23 05:15 Lymph # (Auto) 1.8 X10^3/uL (1.3-2.9) 07/15/23 05:15 [place] # (Auto) 0.6 x10^3/uL (0.3-0.8) 07/15/23 05:15 Eos # (Auto) 0.0 x10^3/uL (0.0-0.2) 07/15/23 05:15 Baso # (Auto) 0.0 X10^3/uL (0.0-0.1) 07/15/23 05:15 Absolute Nucleated RBC 0.0 /100WBC 07/15/23 05:15 Absolute Retic 0.0196 10^6/uL 07/13/23 04:15 Percent Retic 0.70 % (0.8-2.2) L 07/13/23 04:15 Sodium 133 mmol/L (136-145) L 07/15/23 05:15 Corrected Sodium TNP 07/15/23 05:15 Potassium 4.2 mmol/L (3.5-5.1) 07/15/23 05:15 Chloride 100 mmol/L (98-107) 07/15/23 05:15 Carbon Dioxide 30.1 mmol/L (21-32) 07/15/23 05:15 BUN 2 mg/dL (7-18) L 07/15/23 05:15 Creatinine 0.64 mg/dL (0.55-1.02) 07/15/23 05:15 Est GFR (MDRD) Af Amer > 60 (>60) 07/15/23 05:15 Est GFR (MDRD) Non-Af > 60 (>60) 07/15/23 05:15 Glucose 92 mg/dL (65-99) 07/15/23 05:15 Lactic Acid 1.8 mmol/L (0.4-2.0) 07/12/23 09:00 Calcium 7.7 mg/dL (8.5-10.1) L 07/15/23 05:15 Corrected Calcium 8.8 mg/dL (8.5-10.1) 07/15/23 05:15 Magnesium 2.1 mg/dL (2.0-2.9) 07/15/23 05:15 Iron 85 ug/dL (50-175) 07/13/23 04:15 TIBC 146 ug/dL (250-450) L 07/13/23 04:15 Transferrin 122 mg/dL (202-364) L 07/13/23 04:15 Ferritin 223 ng/mL (8-252) 07/13/23 04:15 Total Bilirubin 0.70 mg/dL (0.2-1.0) 07/15/23 05:15 AST 24 Units/L (15-37) 07/15/23 05:15 ALT 41 Units/L (12-78) 07/15/23 05:15 Alkaline Phosphatase 65 Units/L (46-116) 07/15/23 05:15 Creatine Kinase 50 Units/L (26-192) 07/11/23 11:30 Total Protein 6.6 g/dL (6.4-8.2) 07/15/23 05:15 Albumin 2.6 g/dL (3.4-5.0) L 07/15/23 05:15 Globulin 4.0 g/dL (2.5-4.5) 07/15/23 05:15 Albumin/Globulin Ratio 0.7 Ratio (1.1-2.1) L 07/15/23 05:15 Lipase 30 Units/L (16-77) 07/11/23 11:30 Vitamin B12 297 pg/mL (193-986) 07/13/23 04:15 Folate 1.3 ng/mL (>8.6) L 07/13/23 04:15 HCG, Qual Negative <10 mIU/mL 07/11/23 11:30 Specimen Type Clean catch urine 07/11/23 13:30 Urine Color [place] (YELLOW) 07/11/23 13:30 Urine Appearance Cloudy (CLEAR) 07/11/23 13:30 Urine pH 6.0 (5.0 - 8.0) 07/11/23 13:30 Ur Specific [place] 1.015 (1.000-1.030) 07/11/23 13:30 Urine Protein 2+ (NEGATIVE) 07/11/23 13:30 Urine Glucose (UA) Negative (NEGATIVE) 07/11/23 13:30 Urine Ketones Negative (NEGATIVE) 07/11/23 13:30 Urine Blood 4+ (NEGATIVE) 07/11/23 13:30 Urine Nitrite Negative (NEGATIVE) 07/11/23 13:30 Urine Bilirubin 1+ (NEGATIVE) 07/11/23 13:30 Urine Urobilinogen 3+ (NORMAL) 07/11/23 13:30 Ur Leukocyte Esterase 3+ (NEGATIVE) 07/11/23 13:30 Urine RBC Tntc /HPF (0-3) A 07/11/23 13:30 Urine WBC Tntc /HPF (0-5) A 07/11/23 13:30 Ur Squamous Epith Cells Few /HPF (NEGATIVE) 07/11/23 13:30 Amorphous Sediment 2+ /HPF (NEGATIVE) 07/11/23 13:30 Urine Bacteria 3+ /HPF (NEGATIVE) 07/11/23 13:30 Ur Culture Indicated? Yes/culture set up 07/11/23 13:30 Hospital Course: Patient is a 32-year-old female presenting with generalized weakness, dysuria, and muscle spasms. She reports that symptoms have been going on for the past few days. Reports symptoms have been getting worse. Labs/imaging: WBC 4.9, hemoglobin 10.6, platelets 66, sodium 923050, potassium 2.3>2.5, creatinine 0.64, glucose 78, AST 1 1962, ALT 10 163, ALP 62, lactic acid 3.0, UA con sistent with infection, urine/blood culture pending, CT abdomen and pelvis revealed fatty liver. Patient was admitted for acute cystitis, hyponatremia, and hypokalemia. She was started on IV fluids normal saline at 150 mL/h, electrolytes are going to be repleted via protocol. Will continue IV antibiotics Rocephin. Will advance her diet to regular and order Zanaflex as needed to help with muscle spasms. Otherwise continue with current treatment plan, continue to closely monitor and follow-up labs in the morning. Patient was treated with IV Rocephin for her UTI and after a few days Cipro p rogressively got a little better the urine culture came back and show that it had the best sensitivity to ciprofloxacin. Cipro was added a few days ago. Patient's electrolyte abnormalities have resolved over the 4 days she has been here. She does state that her feet are burning stinging and painful but they were doing this before she was admitted to the hospital. This is not a new symptom. Patient normally takes Suboxone however she has not been receiving it here in the hospital. I told him to go ahead and start her on it this morning and that should get her pain under better control. We will go ahead and discharge her home today in stable condition. The patient does complain of some mild nausea this morning and asked for a prescription of Zofran to go home with. I told her that is fine and we will send that in for her. Her discharge medications she will resume her regular home medicines as before and we will add ciprofloxacin 500 mg 1 p.o. twice daily x 1 week and Zofran 8 mg 1 p.o. every 8 hours as needed nausea vomiting. #30 no refills. The patient will be following up with with her primary care provider for hospital follow-up within the next 7 to 10 days. She is told that if she starts feeling worse again and she cannot get a hold of her physician who normally takes care of her I told her to go to the ER for further evaluation and treatment if needed.
[2023-07-15 14:02] VITALS: BP 129/91; PULSE 111; TEMP 97.8
== END 2023-07-15 14:00 | disposition home or self-care (01) | DRG 690 ==
LOC: ER 10:18 → MED/SURG 10:18 → OBSVTOIN 14:33 → MED/SURG 15:18
PROVIDERS: ADMIT Family Medicine; ATTEND Family Medicine
DX: E87.1 Hypo-osmolality and hyponatremia; F41.8 Other specified anxiety disorders; E83.42 Hypomagnesemia; R20.2 Paresthesia of skin; K76.0 Fatty (change of) liver, not elsewhere classified; M62.81 Muscle weakness (generalized); M79.671 Pain in right foot; B96.29 Other Escherichia coli [E. coli] as the cause of diseases classified elsewhere; Z65.8 Other specified problems related to psychosocial circumstances; I10 Essential (primary) hypertension; E86.0 Dehydration; M79.672 Pain in left foot; M62.838 Other muscle spasm; N39.0 Urinary tract infection, site not specified; E87.6 Hypokalemia